=== PATIENT | male | born 1970 | race Two or more races ===

== ENCOUNTER 2016-10-08 11:31 | Day surgery (SDC) | payer BC, OTHER ==
[2016-10-08] MEDS ORDERED: PROPOFOL 200 MG/20 ML BOTTLE IV ONE (12:51)
[2016-10-08] MEDS ORDERED: IV LACTATED RINGERS SOLUTION 1,000 ML BAG IV ONE (12:51)
[2016-10-08] MEDS ORDERED: LIDOCAINE HCL 1% 20 ML VIAL MC ONE (12:51)
== END 2016-10-08 14:30 | disposition home or self-care (01) ==
LOC: DS 11:31
PROVIDERS: ATTEND Internal Medicine Gastroenterology
DX: D64.9 Anemia, unspecified (principal); K20.8 Other esophagitis; D12.4 Benign neoplasm of descending colon; D12.5 Benign neoplasm of sigmoid colon; K57.30 Diverticulosis of large intestine without perforation or abscess without bleeding; K64.8 Other hemorrhoids; E11.9 Type 2 diabetes mellitus without complications
CPT/HCPCS: A4217; A4663; J3490; J7030; J7120

== ENCOUNTER 2017-07-03 09:38 | Inpatient (IN) | payer BC, OTHER ==
[~2017-07-03] VITALS: Ht 172.7 cm; Wt 95.3 kg
[2017-07-03] MEDS ORDERED: BENAZEPRIL PO (09:49)
[2017-07-03] MEDS ORDERED: ASPIRIN 81 MG TAB.CHEW PO ONE (10:00)
[2017-07-03] MEDS ORDERED: ASPIRIN 81 MG TAB.CHEW ONE (10:12)
[2017-07-03 10:13] LABS: BASOPHILS # (AUTO) 0.1 K/uL (0.0-8.0); EOSINOPHILS # (AUTO) 0.2 K/uL (0.0-0.7); EOSINOPHILS % (AUTO) 2.6 % (0.0-7.0); HEMATOCRIT 39.5 % (36.7-47.1); HEMOGLOBIN 12.6 g/dL (12.5-16.3); LYMPHOCYTES # (AUTO) 2.1 K/uL (20.0-40.0); LYMPHOCYTES % (AUTO) 25.9 % (20.5-51.5); MEAN CORPUSCULAR HEMOGLOBIN 20.9 uug (23.8-33.4); MEAN CORPUSCULAR HGB CONC 32 g/dL (32.5-36.3); MEAN CORPUSCULAR VOLUME 65.5 fL (73.0-96.2); MONOCYTES # (AUTO) 0.6 K/uL (2.0-10.0); MONOCYTES % (AUTO) 7.8 % (0.0-11.0); NEUTROPHILS # (AUTO) 5.1 K/uL (1.8-8.9); NEUTROPHILS % (AUTO) 62.7 % (38.5-71.5); PLATELET COUNT (AUTO) 207 K/uL (152-348); RED BLOOD CELL COUNT(AUTO) 6.04 MIL/uL (4.06-5.63); WHITE BLOOD COUNT (AUTO) 8.2 K/uL (3.6-10.2)
[2017-07-03 10:21] LABS: POTASSIUM 4.1 mmol/L (3.5-5.1)
--- NOTE | 2017-07-03 11:00 | NUR ---
Dr. Chu spoke with Dr. Liborio Kendrick via telephone, pt to be admitted to tele.
--- NOTE | 2017-07-03 11:05 | NUR ---
Received report from the Marianela VERNON.
--- NOTE | 2017-07-03 11:09 | NUR ---
SBAR report given to Oma RN on tele floor, pt trans to tele floor with NAD noted.
[2017-07-03 11:10] LABS: EOSINOPHILS % (MANUAL) 2 % (0-8); LYMPHOCYTES % (MANUAL) 29 % (20-40); MONOCYTES % (MANUAL) 10 % (2-10); NEUTROPHILS % (MANUAL) 59 % (42-75)
--- NOTE | 2017-07-03 11:15 | NUR ---
Received client from the ER via wheelchair accompanied by one transporter. Client is in stable condition. Reports pain levels of 5/10 left upper chest area and shortness of breath. Addendum: 07/03/17 at 1132 by JOSE ROBERTO IVERSON RN Placed on telemetry monitoring
[2017-07-03 11:43] VITALS: BP 113/72
[2017-07-03] MEDS ORDERED: MAGNESIUM HYDROXIDE 30 ML LIQUID UDC PO PRN (11:45)
[2017-07-03] MEDS ORDERED: MORPHINE SULFATE 2 MG/1 ML DISP.SYRIN IV PRN (11:45)
[2017-07-03] MEDS ORDERED: ACETAMINOPHEN 325 MG TABLET PO PRN (11:45)
[2017-07-03] MEDS ORDERED: ONDANSETRON 4 MG/2 ML VIAL IV PRN (11:45)
[2017-07-03] MEDS ORDERED: ZOLPIDEM 5 MG TABLET PO PRN (11:45)
[2017-07-03] MEDS ORDERED: NITROGLYCERIN 0.4 MG/TAB BOTTLE SL PRN (11:45)
[2017-07-03] MEDS ORDERED: Z GUARD REMEDY PASTE 57 GM TUBE TOP PRN (11:45)
[2017-07-03] MEDS ORDERED: MORPHINE SULFATE 4 MG/1 ML DISP.SYRIN IV PRN (12:00)
[2017-07-03] MEDS: HYDROCODONE/APAP 5-325MG TABLET PO PRN ×2 (14:50→23:49)
[2017-07-03 16:05] VITALS: BP 115/72
--- NOTE | 2017-07-03 19:30 | NUR ---
End of shift notes: Client is sitting up by the edge of the bed eating, no signs and symptoms of SOB, pain, distress or discomfort. Client has a visitor in the room. Client is alert and oriented times 4. Client is aware he is NPO after midnight. Bed at lowest position for safety and call light within reach for assistance. Able to make needs known. Troponin level WNL. No IV fluids running at this time. IV line intact and patent. Client has been compliant with all nursing care.
--- NOTE | 2017-07-03 19:30 | NUR ---
RECEIVED IN BED, NO SOB NO CHEST PAIN NOTED, CONT ON PAIN MANAGEMENT, TROPONIN LEVEL WNL, OXYGEN SAT WNL, CONT TO MONITOR. CALL LIGHT WITHIN REACH.
[2017-07-03 20:00] VITALS: BP 108/54
[2017-07-04] VITALS: BP 110/54
[2017-07-04 04:00] VITALS: BP 125/54
[2017-07-04 06:30] LABS: BASOPHILS # (AUTO) 0.1 K/uL (0.0-8.0); BASOPHILS % (AUTO) 1.1 % (0.0-2.0); EOSINOPHILS # (AUTO) 0.4 K/uL (0.0-0.7); EOSINOPHILS % (AUTO) 4.7 % (0.0-7.0); HEMATOCRIT 40.8 % (36.7-47.1); HEMOGLOBIN 12.7 g/dL (12.5-16.3); LYMPHOCYTES # (AUTO) 2.5 K/uL (20.0-40.0); LYMPHOCYTES % (AUTO) 25.6 % (20.5-51.5); MEAN CORPUSCULAR HEMOGLOBIN 20.6 uug (23.8-33.4); MEAN CORPUSCULAR HGB CONC 31 g/dL (32.5-36.3); MEAN CORPUSCULAR VOLUME 66.3 fL (73.0-96.2); MONOCYTES # (AUTO) 0.8 K/uL (2.0-10.0); MONOCYTES % (AUTO) 7.8 % (0.0-11.0); NEUTROPHILS # (AUTO) 5.9 K/uL (1.8-8.9); NEUTROPHILS % (AUTO) 60.8 % (38.5-71.5); PLATELET COUNT (AUTO) 204 K/uL (152-348); RED BLOOD CELL COUNT(AUTO) 6.16 MIL/uL (4.06-5.63); WHITE BLOOD COUNT (AUTO) 9.6 K/uL (3.6-10.2)
[2017-07-04 06:49] LABS: THYROID STIMULATING HORMONE 1.528 mIU/mL (0.358-3.740)
[2017-07-04 06:50] LABS: CREATININE 0.9 mg/dL (0.6-1.3); PHOSPHOROUS 3.5 mg/dL (2.5-4.9); POTASSIUM 4.3 mmol/L (3.5-5.1)
--- NOTE | 2017-07-04 07:18 | NUR ---
SLEPT MOST OF THE NIGHT, NO SOB, WITH EPISODE OF L CHEST AREA PAIN MEDICATED WITH HELP AFTER ONE HOUR, PILI ALEJANDRE A THIS TIME. REMAIN NPO FOR POSSIBLE STRESS TEST TODAY. ENDORSED TO NEXT SHIFT. CALL LIGHT WITH REACH.
--- NOTE | 2017-07-04 07:40 | NUR ---
RECEIVED IN BED, NO SOB NO CHEST PAIN NOTED, CONT ON PAIN MANAGEMENT, OXYGEN SAT WNL, CONT TO MONITOR. CALL LIGHT WITHIN REACH.
[2017-07-04] MEDS ORDERED: ASPIRIN EC 81 MG TABLET.DR PO SCH (09:00)
[2017-07-04] MEDS ORDERED: BENAZEPRIL HCL 20 MG TABLET PO SCH (09:00)
[2017-07-04 09:20] LABS: EOSINOPHILS % (MANUAL) 5 % (0-8); LYMPHOCYTES % (MANUAL) 26 % (20-40); MONOCYTES % (MANUAL) 8 % (2-10); NEUTROPHILS % (MANUAL) 61 % (42-75)
[2017-07-04] MEDS ORDERED: ASPI-618 PO (10:02)
--- NOTE | 2017-07-04 10:22 | NUR ---
D/C ORDERS RECEIVED NOTED AND CARRIED OUT.D/C INSTRUCTIONS GIVEN TO THE PT.D/C HEPLOCK PER MD ORDERS.PT VERBALIZED UNDERSTANDING ALL THE INSTRUCTIONS PT LEFT THE FACILITY VIA PRIVATE CAR IN STABLE CONDITION.
[2017-07-04 10:28] VITALS: BP 139/83
== END 2017-07-04 10:28 | disposition home or self-care (01) | DRG 313 ==
LOC: ER 09:41 → TELE 10:24
DX: R07.89 Other chest pain (principal); E11.9 Type 2 diabetes mellitus without complications; E66.9 Obesity, unspecified; F17.210 Nicotine dependence, cigarettes, uncomplicated; X50.0XXA Overexertion from strenuous movement or load, initial encounter; Y92.69 Other specified industrial and construction area as the place of occurrence of the external cause; Y99.0 Civilian activity done for income or pay; I10 Essential (primary) hypertension; Z68.31 Body mass index [BMI] 31.0-31.9, adult
CPT/HCPCS: 36415; 70030-TC; 71045; 83735; 84100; 84443; 85025; 85730; 93005; 93307; A4663

== ENCOUNTER 2017-12-18 09:57 | Emergency (ER) | payer BC, OTHER ==
[~2017-12-18] VITALS: Ht 172.7 cm; Wt 90.7 kg
[~2017-12-18 09:57] MED LIST: ASPI-618 PO; BENAZEPRIL PO
[2017-12-18] MEDS ORDERED: IBUPROFEN 800 MG TABLET PO ONE (10:30)
[2017-12-18] MEDS ORDERED: IBUPROFEN 800 MG TABLET ONE (10:31)
--- NOTE | 2017-12-18 10:35 | NUR ---
PT WAS EVALUATED BY DR COOK. PT WAS D/C TO HOME. D/C INSTRUCTIONS GIVEN TO THE PT.
[2017-12-18 10:38] VITALS: BP 141/84
== END 2017-12-18 10:39 | disposition home or self-care (01) ==
LOC: ER 09:57
DX: S53.401A Unspecified sprain of right elbow, initial encounter (principal); M77.11 Lateral epicondylitis, right elbow; I10 Essential (primary) hypertension; E78.00 Pure hypercholesterolemia, unspecified; E11.9 Type 2 diabetes mellitus without complications; F17.200 Nicotine dependence, unspecified, uncomplicated; Z79.82 Long term (current) use of aspirin; Z79.899 Other long term (current) drug therapy; X58.XXXA Exposure to other specified factors, initial encounter; Y93.89 Activity, other specified; Y92.89 Other specified places as the place of occurrence of the external cause; Y99.8 Other external cause status
CPT/HCPCS: 99282; A4663

== ENCOUNTER 2017-12-22 13:40 | Emergency (ER) | payer OTHER ==
[~2017-12-22] VITALS: Ht 172.7 cm; Wt 90.7 kg
[2017-12-22 14:29] LABS: *AMPHETAMINE, URINE NEGATIVE (NEGATIVE); *BARBITURATE, URINE NEGATIVE (NEGATIVE); *CANNABINOID, URINE NEGATIVE (NEGATIVE); *COCCAINE, URINE NEGATIVE (NEGATIVE); *OPIATE, URINE NEGATIVE (NEGATIVE); *PHENCYCLIDINE SCREEN,URINE NEGATIVE (NEGATIVE)
--- NOTE | 2017-12-22 14:34 | NUR ---
PT LEFT WITH [employer] NURSE, AFTER SPECIMEN OBTAINED AND SENT TO LAB.
== END 2017-12-22 14:37 | disposition home or self-care (01) ==
LOC: ER 13:40
DX: Z02.89 Encounter for other administrative examinations (principal); I10 Essential (primary) hypertension; E78.00 Pure hypercholesterolemia, unspecified; E11.9 Type 2 diabetes mellitus without complications; F17.200 Nicotine dependence, unspecified, uncomplicated
CPT/HCPCS: 80307; A4663

== ENCOUNTER 2019-11-12 09:57 | Outpatient (CLI) | payer BC, OTHER ==
[2019-11-12 10:49] LABS: BASOPHILS # (AUTO) 0.1 K/uL (0.0-8.0); MONOCYTES # (AUTO) 0.5 K/uL (2.0-10.0)
[2019-11-12 10:56] LABS: BASOPHILS % (AUTO) 1.6 % (0.0-2.0); EOSINOPHILS # (AUTO) 0.2 K/uL (0.0-0.7); EOSINOPHILS % (AUTO) 2.7 % (0.0-7.0); HEMATOCRIT 40.4 % (36.7-47.1); LYMPHOCYTES # (AUTO) 2.1 K/uL (20.0-40.0); LYMPHOCYTES % (AUTO) 32.3 % (20.5-51.5); MEAN CORPUSCULAR HEMOGLOBIN 21.5 uug (23.8-33.4); MEAN CORPUSCULAR HGB CONC 32 g/dL (32.5-36.3); MEAN CORPUSCULAR VOLUME 66.9 fL (73.0-96.2); MONOCYTES % (AUTO) 8.3 % (0.0-11.0); NEUTROPHILS # (AUTO) 3.7 K/uL (1.8-8.9); NEUTROPHILS % (AUTO) 55.1 % (38.5-71.5); PLATELET COUNT (AUTO) 217 K/uL (152-348); RED BLOOD CELL COUNT(AUTO) 6.04 MIL/uL (4.06-5.63)
[2019-11-12 10:59] LABS: WHITE BLOOD COUNT (AUTO) 6.6 K/uL (3.6-10.2)
[2019-11-12 12:31] LABS: BASOPHILS % (MANUAL) 3 % (0-2); EOSINOPHILS % (MANUAL) 1 % (0-8); LYMPHOCYTES % (MANUAL) 39 % (20-40); MONOCYTES % (MANUAL) 5 % (2-10); NEUTROPHILS % (MANUAL) 52 % (42-75)
== END 2019-11-12 23:59 | disposition home or self-care (01) ==
LOC: LAB 09:57
PROVIDERS: ATTEND Family Medicine
DX: D72.1 Eosinophilia (principal)
CPT/HCPCS: 36415; 70030-TC; 85025

== ENCOUNTER 2021-03-09 07:26 | Outpatient (CLI) | payer BC, OTHER | END 2021-03-09 23:59 | disposition home or self-care (01) | LOC: LAB 07:26 | PROVIDERS: ATTEND Internal Medicine | DX: Z01.812 Encounter for preprocedural laboratory examination (principal); Z20.822 Contact with and (suspected) exposure to COVID-19 ==

== ENCOUNTER 2021-03-12 10:51 | Day surgery (SDC) | payer BC, OTHER ==
[2021-03-12] MEDS ORDERED: PROPOFOL 200 MG/20 ML BOTTLE IV ONE (10:52)
[2021-03-12] MEDS ORDERED: ATROPINE SULFATE 1 MG/ML VIAL IM ONE (10:52)
[2021-03-12] MEDS ORDERED: LIDOCAINE-MPF 2% 5 ML VIAL IJ ONE (10:52)
[2021-03-12] MEDS ORDERED: SEVOFLURANE 250 ML BOTTLE IH ONE (10:52)
[2021-03-12 12:01] LABS: HEMATOCRIT 46.6 % (36.7-47.1); MEAN CORPUSCULAR HEMOGLOBIN 21.4 uug (23.8-33.4); MEAN CORPUSCULAR VOLUME 66.7 fL (73.0-96.2); PLATELET COUNT (AUTO) 239 K/uL (152-348)
[2021-03-12 12:02] LABS: CREATININE 0.9 mg/dL (0.6-1.3); POTASSIUM 3.8 mmol/L (3.5-5.1)
[2021-03-12 12:03] LABS: *BILIRUBIN,URIN NEGATIVE (NEGATIVE); *BLOOD, URINE NEGATIVE (NEGATIVE); *CLARITY,URINE CLEAR (CLEAR); *COLOR,URINE YELLOW (YELLOW); *KETONES,URINE NEGATIVE (NEGATIVE); *UROBILINOGEN,URINE 0.2 E.U./dl (NORMAL); LEUKOCYTE ESTERASE ,URINE NEGATIVE (NEGATIVE); NITRITE, URINE NEGATIVE (NEGATIVE); PH,URINE 5.5 (5.0-8.0); UGLUCOSE 2+ (NEGATIVE)
[2021-03-12 12:14] LABS: BILIRUBIN,TOTAL 1.2 mg/dL (0.2-1.0); TOTAL PROTEIN, SERUM 8.4 g/dL (6.4-8.2)
[2021-03-12] MEDS ORDERED: ONDANSETRON 4 MG/2 ML VIAL ONE (15:43)
[2021-03-12] MEDS ORDERED: METOCLOPRAMIDE HCL 10 MG/2 ML VIAL ONE (16:03)
== END 2021-03-12 17:20 | disposition home or self-care (01) ==
LOC: DS 10:51
PROVIDERS: ATTEND Internal Medicine Gastroenterology
DX: K59.00 Constipation, unspecified (principal); D64.9 Anemia, unspecified; E66.9 Obesity, unspecified; K57.30 Diverticulosis of large intestine without perforation or abscess without bleeding; K64.0 First degree hemorrhoids; K63.89 Other specified diseases of intestine; K63.5 Polyp of colon; I10 Essential (primary) hypertension; E11.9 Type 2 diabetes mellitus without complications; E78.00 Pure hypercholesterolemia, unspecified; M19.90 Unspecified osteoarthritis, unspecified site; Z79.82 Long term (current) use of aspirin; Z79.84 Long term (current) use of oral hypoglycemic drugs; Z79.899 Other long term (current) drug therapy; Z98.890 Other specified postprocedural states; Z72.89 Other problems related to lifestyle
CPT/HCPCS: 36415; 45385; 71045; 80053; 81003; 82962; 85025; 85730; 93005; J2405; J2765; J3490; A4217; A4663; J0461; J7030

== ENCOUNTER 2022-05-22 14:12 | Outpatient (CLI) | payer BC, OTHER ==
--- NOTE | 2022-05-23 09:59 | NUR ---
ALL STUDY REPORTS CT AND U/S WERE FAXED OVER TO DR. YANES. DR. YANES LINE SEEMS TO ALWAYS BE BUSY, AND SO SO YOU NEED TO SEND PAPAERWORK SEVERAL TIMES. ON MY THIRD TRY IT WAS ABLE TO GO AND I RECEIVED A COMPLETE RECEIPT GABINO Condon
== END 2022-05-22 23:59 | disposition home or self-care (01) ==
LOC: CT 14:12
PROVIDERS: ATTEND Family Medicine
DX: R91.1 Solitary pulmonary nodule (principal); R10.9 Unspecified abdominal pain; N20.0 Calculus of kidney; I70.0 Atherosclerosis of aorta; J47.9 Bronchiectasis, uncomplicated
CPT/HCPCS: 71250; 76700

== ENCOUNTER → 2022-08-09 | Outpatient (CLI) | payer BC, OTHER | END | disposition home or self-care (01) | LOC: RAD 08:33 | PROVIDERS: ATTEND Family Medicine | DX: R91.1 Solitary pulmonary nodule (principal); M51.34 Other intervertebral disc degeneration, thoracic region; N28.1 Cyst of kidney, acquired; I25.10 Atherosclerotic heart disease of native coronary artery without angina pectoris; J47.9 Bronchiectasis, uncomplicated | CPT/HCPCS: 71250; A4663 ==